=== PATIENT | male | born 1960 | race Caucasian/White ===

== ENCOUNTER 2017-05-30 05:31 | Observation (INO) | payer MEDICAID, OTHER ==
[2017-05-30] MEDS ORDERED: Metoprolol Tartrate 25 MG Tab PO ONE (06:23)
--- NOTE | 2017-05-30 06:33 | EDM.PDOC ---
ED HPI GENERAL MEDICAL PROBLEM - General Chief Complaint: General Stated Complaint: PALPATATIONS Time Seen by Provider: 05/30/17 05:35 Source of Information: Reports: Patient History Limitations: Reports: No Limitations - History of Present Illness INITIAL COMMENTS - FREE TEXT/NARRATIVE: Pt is from [place], [place] here on fishing trip.According to patient he woke up today morning with feeling of racing heart. Pt claims that he felt his heart beats more like being irregular, but did not feel a thump or racing feeling. Pt claims he felt and uncomfortable feeling in his chest , but was not asso with chest pain or chest tightness. No nausea or vomiting. No wheezing or shortness of breath. the feeling went away, but came back. Hence he did come into emergency room.Presently he feels fine. Pt claims several years ago, he was having palpitation was seen by flight line service attendant in [place], [place] and was on toprol XL 18 years ago. But he has not taken his toprol for past 8 year as he was feeling fine.Only prescription medication he takes is pravastatin. Pt claims that he drank 9 beers yesterday and he feels like he has a hang over and mild headache. - Related Data Allergies Allergy/AdvReac Type Severity Reaction Status Date / Time Penicillins Allergy Intermediate Hives Verified 05/30/17 06:01 deer fly bites Allergy Seizure Uncoded 05/30/17 06:01 Home Meds: Home Meds Aspirin [Halfprin] 81 mg PO DAILY 05/30/17 [History] Multivitamin [Multi-Day Vitamins] 1 tab PO DAILY 05/30/17 [History] Pravastatin [Pravachol] 20 mg PO BEDTIME 05/30/17 [History] Ubidecarenone/Vitamin E [Co Q-10 50 MG Softgel] 1 each PO DAILY 05/30/17 [ History] ED ROS GENERAL - Review of Systems Review Of Systems: See Below Constitutional: Reports: Fever, Chills. Denies: Weakness, Fatigue, Night Sweats , Diaphoresis HEENT: Denies: Contact Lenses, Throat Pain, Throat Swelling Respiratory: Denies: Shortness of Breath, Wheezing, Cough, Sputum Cardiovascular: Denies: Chest Pain, Blood Pressure Problem, Dyspnea on Exertion , Edema, Lightheadedness, Syncope GI/Abdominal: Denies: Abdominal Pain, Nausea, Vomiting : Denies: Dysuria, Flank Pain, Frequency Musculoskeletal: Denies: Joint Pain, Joint Swelling Skin: Denies: Cyanosis, Bruising, Pruritis, Rash Neurological: Reports: Headache. Denies: Confusion, Dizziness, Tingling, Weakness, Gait Disturbance ED EXAM, GENERAL - Physical Exam Exam: See Below Exam Limited By: No Limitations General Appearance: Alert, WD/WN, No Apparent Distress Eye Exam: Bilateral Eye: EOMI, PERRL Ears: Normal External Exam, Normal Canal, Hearing Grossly Normal, Normal TMs Ear Exam: Bilateral Ear: Auricle Normal, Canal Normal, TM normal Nose: Normal Inspection, Normal Mucosa, No Blood Throat/Mouth: Normal Inspection, Normal Lips, Normal Teeth, Normal Gums, Normal Oropharynx, Normal Voice, No Airway Compromise Head: Atraumatic, Normocephalic Neck: Normal Inspection, Supple, Non-Tender, Full Range of Motion Respiratory/Chest: No Respiratory Distress, Lungs Clear, Normal Breath Sounds, No Accessory Muscle Use, Chest Non-Tender Cardiovascular: Normal Peripheral Pulses, Regular Rate, Rhythm, No Edema, No Gallop, No JVD, No Murmur, No Rub GI/Abdominal: Normal Bowel Sounds, Soft, Non-Tender, No Organomegaly, No Distention, No Abnormal Bruit, No Mass Back Exam: Normal Inspection, Full Range of Motion, NT Extremities: Normal Inspection, Normal Range of Motion, Non-Tender, Normal Capillary Refill, No Pedal Edema Neurological: Alert, Oriented, CN II-XII Intact, Normal Cognition, Normal Gait, Normal Reflexes, No Motor/Sensory Deficits EKG INTERPRETATION EKG Date: 05/30/17 Rhythm: NSR [place]: LAD-Left [place] Deviation P-Wave: Variable QRS: Normal ST-T: Normal QT: Normal Comparison: NA - No Prior EKG EKG Interpretation Comments: has PACs very occasion caught on EKG Course - Vital Signs Text/Narrative:: Pt was placed on monitor. He was in sinus rhythm and his initial BP was 175/ 107mmhg. Pt does not have history of HTN. As he was monitored in the emergency room and his labs were ordered, he did complain of uneasy feeling in his chest, and he was having PACs on the monitor which resolved in 2-3 beats and pt started to feel better. He had a similar short episode again in 10-15 minutes and was picked up on EKG. Since then for the past 1 hr he has not had any more episode and has remained in NSR at heart rate in 60s-70s. He did receive metoprolol 25mg for his elevated BP and it only brought the pressure down into 167/109mmhg. Hence clonidine 0.1mg was given. His last BP is 178/102mmhg. Pt claims he is getting concerned. Pt's CBC, CMP ,TSH and troponin are negative. The cause of his PACs could be his excessive alcohol consumption or his elevated blood pressure. At this point plan is to admit him to hospital for observation and get his BP under control and also repeat troponin in 8 hrs from the time of onset, and followup. Last Recorded V/S: Last Vital Signs Temp 98.0 F 05/30/17 05:51 Pulse Resp 16 05/30/17 05:51 BP 175/108 H 05/30/17 05:51 Pulse Ox 100 05/30/17 05:51 - Orders/Labs/Meds Orders: Active Orders 24 hr Category Date Time Status EKG Documentation Completion [RC] ASDIRECTED Care 05/30/17 06:01 Active CBC WITH AUTO DIFF [HEME] Stat Lab 05/30/17 05:59 Ordered COMPREHENSIVE METABOLIC PN,CMP [CHEM] Stat Lab 05/30/17 05:59 Ordered INR,PT,PROTHROMBIN TIME [COAG] Stat Lab 05/30/17 05:59 Ordered TROPONIN I [CHEM] Stat Lab 05/30/17 05:59 Ordered TSH ULTRASENSITIVE [CHEM] Stat Lab 05/30/17 05:59 Ordered Metoprolol Tartrate [Lopressor] Med 05/30/17 06:23 Once 25 mg PO ONETIME ONE EKG 12 Lead [EK] Routine Ther 05/30/17 06:01 Ordered Medication Orders Metoprolol Tartrate (Lopressor) 25 mg PO ONETIME ONE Stop: 05/30/17 06:24 Meds: Medications Generic Name Dose Route Start Last Admin Trade Name Freq PRN Reason Stop Dose Admin Metoprolol Tartrate 25 mg 05/30/17 06:23 Lopressor PO 05/30/17 06:24 ONETIME ONE Departure - Departure Time of Disposition: 07:15 Disposition: Refer to Observation Condition: Fair Clinical Impression: Atrial arrhythmia - Discharge Information Forms: ED Department Discharge - Problem List & Annotations (1) Atrial arrhythmia SNOMED Code(s): 35662843 Code(s): I49.8 - OTHER SPECIFIED CARDIAC ARRHYTHMIAS Status: Acute Current Visit: Yes - Problem List Review Problem List Initiated/Reviewed/Updated: Yes - My Orders Last 24 Hours: My Active Orders 05/30/17 05:59 CBC WITH AUTO DIFF [HEME] Stat COMPREHENSIVE METABOLIC PN,CMP [CHEM] Stat INR,PT,PROTHROMBIN TIME [COAG] Stat TROPONIN I [CHEM] Stat TSH ULTRASENSITIVE [CHEM] Stat 05/30/17 06:01 EKG Documentation Completion [RC] ASDIRECTED EKG 12 Lead [EK] Routine 05/30/17 06:23 Metoprolol Tartrate [Lopressor] 25 mg PO ONETIME ONE - Assessment/Plan Admission H&P: Please use this note as an admission H&P Last 24 Hours: My Active Orders 05/30/17 05:59 CBC WITH AUTO DIFF [HEME] Stat COMPREHENSIVE METABOLIC PN,CMP [CHEM] Stat INR,PT,PROTHROMBIN TIME [COAG] Stat TROPONIN I [CHEM] Stat TSH ULTRASENSITIVE [CHEM] Stat 05/30/17 06:01 EKG Documentation Completion [RC] ASDIRECTED EKG 12 Lead [EK] Routine 05/30/17 06:23 Metoprolol Tartrate [Lopressor] 25 mg PO ONETIME ONE Assessment:: Atrial arrhythmia with chest discomfort Plan: Pt's CBC, CMP ,TSH and troponin are negative. The cause of his PACs could be his excessive alcohol consumption or his elevated blood pressure. At this point plan is to admit him to hospital for observation and get his BP under control and also repeat troponin in 8 hrs from the time of onset, and followup.
[2017-05-30] MEDS ORDERED: cloNIDine 0.1 MG Tab PO ONE (06:44)
[2017-05-30] MEDS ORDERED: LORazepam 1 MG Tab PO ONE (07:03)
[2017-05-30] MEDS ORDERED: Sodium Chloride 0.9% 10 ML Syringe FLUSH PRN (07:06)
[2017-05-30] MEDS ORDERED: LORazepam 1 MG Tab ONE (07:07)
[2017-05-30] MEDS ORDERED: HYDROmorphone 2 MG/ML Syringe ONE (07:46)
[2017-05-30] MEDS ORDERED: Sodium Chloride 0.9% 1,000 ML IV SCH (07:50)
[2017-05-30] MEDS ORDERED: HYDROmorphone 2 MG/ML Syringe IVPUSH ONE (07:50)
--- NOTE | 2017-05-30 12:03 | PCM.DCSUM1 ---
Discharge Summary - Hospital Course Free Text/Narrative:: Pt's initial troponin was negative and his CBC, CMP and TSH were normal. His EKG in sinus rhythm with PACs. As patient does have elevated blood pressures and need clonidine and metorprolol to bring it down, and this is new onset hypertension. I did admit patient to observation to repeat troponins in 8 hrs. Pt was started on NS at 125cc/hr to hydrate as he had lot of alcohol and has been having hangover headache. HE did receive ativan 1mg po and Dilaudid 0.5mg im. Pt was placed on equipment monitor phototypesetting. Apparently pt is in sinus rhythm but he keep throwing PACs on and off. Pt's repeat troponin is negative. Also his headache has resolved. has been feeling better. He has PACs on and off on monitor. His Blood pressure is down to 139/78mmhg. The cause of his rhythm problem could be his excessive alcohol consumption or Hypertension. As his BP is controlled and he is asymptomatic. i have reassured and pt and discharged him. I have advised patient to restrain from alcohol. Started him on metoprolol 25mg BID. Hydration. Pt will need holter monitoring done to make sure he is not having any underlying malignant rhythm. I have advised patient to go to nearest Emergency room, if he develops severe chest pain, lightheadedness, severe nausea-vomiting, Diaphoresis, lethargy. I have advised him to followup with his primary care physician back home. Brief History: Pt presented last night with palpitaitons feeling his heart beats on and off. No other symptoms. kindly see the H&P for details. - Discharge Data Discharge Date: 05/30/17 Discharge Disposition: Home, Self-Care 01 Condition: Good - Discharge Diagnosis/Problem(s) (1) Atrial arrhythmia SNOMED Code(s): 97106072 ICD Code: I49.8 - OTHER SPECIFIED CARDIAC ARRHYTHMIAS Status: Acute Current Visit: Yes - Discharge Plan Home Medications: Home Meds Aspirin [Halfprin] 81 mg PO DAILY 05/30/17 [History] Multivitamin [Multi-Day Vitamins] 1 tab PO DAILY 05/30/17 [History] Pravastatin [Pravachol] 20 mg PO BEDTIME 05/30/17 [History] Ubidecarenone/Vitamin E [Co Q-10 50 MG Softgel] 1 each PO DAILY 05/30/17 [ History] Forms: ED Department Discharge - Discharge Summary/Plan Comment DC Time >30 min.: Yes Discharge Summary/Plan Comment: I have advised patient to restrain from alcohol. Started him on metoprolol 25mg BID. Hydration. Pt will need holter monitoring done to make sure he is not having any underlying malignant rhythm. I have advised patient to go to nearest Emergency room, if he develops severe chest pain, lightheadedness, severe nausea-vomiting, Diaphoresis, lethargy. I have advised him to followup with his primary care physician back home. - General Info Date of Service: 05/30/17 Functional Status: Reports: pain controlled, tolerating diet, ambulating, urinating - Review of Systems General: Denies: Fever, Weakness, Fatigue HEENT: Denies: headaches, sinus congestion, sore throat Pulmonary: Denies: shortness of breath, pleuritic chest pain, cough, sputum, wheezing Cardiovascular: Denies: Chest Pain, Lightheadedness Gastrointestinal: Denies: Nausea, Vomiting Musculoskeletal: Denies: joint pain, joint swelling Skin: Denies: bruising, pruritis, rash Neurological: Denies: Confusion, Dizziness, Headache, Seizure, Syncope, Weakness - Patient Data Vitals - Most Recent: Last Vital Signs Temp 98.0 F 05/30/17 05:51 Pulse 67 05/30/17 07:42 Resp 16 05/30/17 07:42 BP 171/74 H 05/30/17 07:42 Pulse Ox 100 05/30/17 07:42 Weight - Most Recent: 88.451 kg Lab Results - Last 24 hrs: Laboratory Results - last 24 hr 05/30/17 Range/Units 11:00 Troponin I < 0.017 (0.000-0.060) ng/mL Med Orders - Current: Current Medications Sodium Chloride (Normal Saline) 1,000 mls @ 125 mls/hr IV ASDIRECTED DELBERT Sodium Chloride (Saline Flush) 10 ml FLUSH ASDIRECTED PRN PRN Reason: Keep Vein Open Discontinued Medications Clonidine HCl (Catapres) 0.1 mg PO ONETIME ONE Stop: 05/30/17 06:45 Last Admin: 05/30/17 06:45 Dose: 0.1 mg Hydromorphone HCl (Dilaudid) Confirm Administered Dose 2 mg .ROUTE .STK-MED ONE Stop: 05/30/17 07:47 Last Admin: 05/30/17 08:00 Dose: 0.5 mg Hydromorphone HCl (Dilaudid) 0.5 mg IVPUSH ONETIME ONE Stop: 05/30/17 07:51 Lorazepam (Ativan) 1 mg PO ONETIME ONE Stop: 05/30/17 07:04 Last Admin: 05/30/17 07:04 Dose: 1 mg Lorazepam (Ativan) Confirm Administered Dose 1 mg .ROUTE .STK-MED ONE Stop: 05/30/17 07:08 Last Admin: 05/30/17 07:07 Dose: Not Given Metoprolol Tartrate (Lopressor) 25 mg PO ONETIME ONE Stop: 05/30/17 06:24 Last Admin: 05/30/17 06:10 Dose: 25 mg - Exam General: Reports: alert, oriented HEENT: Reports: Pupils equal, Pupils reactive, EOMI, Mucous membr. moist/pink Neck: Reports: supple Lungs: Reports: Clear to auscultation, Normal respiratory effort Cardiovascular: Reports: Regular Rate, Regular Rhythm Abdomen: Reports: bowel sounds present, soft, no tenderness, no distension Extremities: Reports: no edema, normal pulses Skin: Reports: warm, dry, intact Neurological: Reports: no new focal deficit *Q Meaningful Use (DIS) - VTE *Q VTE Criteria *Q: - Stroke *Q Stroke Criteria *Q: - AMI *Q AMI Criteria *Q:
[2017-05-30 13:17] VITALS: BP 134/80
== END 2017-05-30 12:00 | disposition home or self-care (01) ==
LOC: LB.ED 05:31 → LB.MS 07:06
PROVIDERS: ADMIT Family Medicine; ATTEND Family Medicine
DX: I49.8 Other specified cardiac arrhythmias (principal); Z79.82 Long term (current) use of aspirin; Z79.899 Other long term (current) drug therapy; Z88.0 Allergy status to penicillin; Z91.09 Other allergy status, other than to drugs and biological substances
CPT/HCPCS: 36415; 80053; 84443; 84484; 85025; 85610; 93005; 99285; A9270; G0378; J1170; J7040